=== PATIENT | female | born 2000 | race Two or more races ===

== ENCOUNTER 2022-01-22 23:19 | Emergency (ER) | payer OTHER, SELFPAY ==
[2022-01-22 23:51] VITALS: BP 122/79; PULSE 108; RESP 16; TEMP 36.7; O2SAT 100; BMI 23.8
--- NOTE | 2022-01-23 01:29 | ED.GENADULT ---
HPI - General Adult General Chief complaint: General Medical Stated complaint: throat pain, previously had strep Time Seen by Provider: 01/22/22 23:51 Source: patient Mode of arrival: ambulatory Limitations: no limitations History of Present Illness HPI narrative: Patient comes to the emergency room accompanied by her mother. Patient complaining of sore throat starting today. Three weeks ago, patient tested positive for COVID-19, on January 06, patient was diagnosed with strep, she to antibiotic for 10 days. Patient states that initially she started feeling better but now she is starting to have sore throat again. Patient denies fever or chills, no difficulty swallowing, only pain Related Data Previous Rx's Medication Instructions Recorded amoxicillin 500 mg-potassium 1 tab PO BID 10 days #20 tabs 01/23/22 clavulanate 125 mg tablet (Augmentin) Allergies Allergy/AdvReac Type Severity Reaction Status Date / Time No Known Allergies Allergy Verified 01/22/22 23:51 [No Known Allergies*] Review of Systems Review of Systems: Constitutional : No Weight loss, No Fever, No Chills, No Night Sweats, No Fatigue, No Malaise ENT/Mouth : No Hearing loss, No Ear Pain, No Nasal Congestion, No Sinus Pain, No Hoarseness, complaining of sore throat, No Rhinorrhea, No Swallowing Difficulty Eyes: No Eye Pain, No Swelling, No Redness, No Foreign Body, No Discharge, No Vision Changes Cardiovascular : No Chest Pain, No SOB, No Dyspnea on Exertion, No Orthopnea, No Edema, No Palpitations Respiratory : No Cough, No Sputum, No Wheezing, No Smoke Exposure, No Dyspnea Gastrointestinal : No Nausea, No Vomiting, No Diarrhea, No Constipation, No abdominal Pain, No Hematochezia, No Melena Genitourinary : no irregular bleeding, No Dysuria, No Urinary Frequency, No Hematuria, No Urinary Incontinence, No Urgency, No Flank Pain, No Urinary Flow Changes, No Hesitancy Musculoskeletal : No joint pain, No Myalgias, No Joint Swelling Skin : No Skin Lesions, No rash Neuro : No Weakness, No Numbness, No Paresthesias, No Loss of Consciousness, No Dizziness, No Headache Psych : No Anxiety/Panic, No Depression, No SI/HI/AH/VH, No Social Issues, Heme/Lymph: No Bruising, No Bleeding,No Lymphadenopathy Endocrine : No Polyuria, No Polydipsia, No Temperature Intolerance [facility] Social History Social History Advance Directives: No Advance Directives Information Provided: No Physical Exam ED Vital Signs: Vital Signs - 24 hr 01/22/22 23:51 Temperature 98.1 F Pulse Rate 108 H Respiratory Rate 16 Blood Pressure 122/79 Pulse Oximetry 100 Oxygen Delivery Method Room Air BMI result Body Mass Index 23.8 Const Other: Appearance: Alert. Oriented X3. No acute distress. Eyes: Pupils equal, round and reactive to light. ENT: Erythematous oropharynx, no abscess visualized Neck: Normal inspection. Neck supple. No lymph nodes noted. No crepitus CVS: Normal heart rate and rhythm. Pulses normal. Normal S1 and S2 Respiratory: No respiratory distress. Breath sounds normal. No Wheezing. No rales Abdomen: Soft and nontender. No rigidity. No distention. Skin: Skin warm and dry. Normal skin color. Normal skin turgor. Extremities: No lower extremity edema. No Lacerations. No Rash Neuro: Oriented X 3. No motor deficit. No sensory deficit. Moving all extremities. No slurred speech. CN 2 through 12 grossly intact Psych: calm, cooperative, normal affect Course Course Course Narrative: Rapid strep and COVID test pending. 02:26, rapid test was positive for strep. Patient initially received penicillin. This timing, patient will be getting Augmentin. For symptomatic relief, patient is receiving now p.o. Decadron and viscous lidocaine. Medical Decision Making Lab Data Labs: Lab Results 01/23/22 01/23/22 Range/Units 01:40 01:40 COVID-19 ([facility]) Negative (Negative) COVID-19 Clin Com See Note S. pyogenes GrpA [place]IE Positive A (Negative) Discharge Plan Discharge Clinical Impression: Acute streptococcal pharyngitis Patient Disposition: Home, Self-Care Instructions: Strep Throat (ED) Additional Instructions: Please follow-up with your primary care physician tomorrow. If you have any worsening or new symptoms, please return to the emergency room or call 911 Prescriptions: New amoxicillin-pot clavulanate [Augmentin] 500-125 mg tablet 1 tab PO BID 10 Days Qty: 20 0RF
[2022-01-23 01:53] LABS: Strep A Nucleic Acid Positive (Negative)
[2022-01-23 02:06] LABS: COVID-19 Test Negative (Negative); IDNOW Serial# 16C4AD1C
[2022-01-23 02:15] VITALS: BP 122/68; PULSE 72; RESP 16; O2SAT 98
[2022-01-23] MEDS: Lidocaine HCl Viscous 2 % 15 ML SOLUTION MUCOUS MEM (02:38)
[2022-01-23] MEDS: Amoxicillin/Potassium Clav 875 MG TABLET PO (02:39)
[2022-01-23] MEDS: dexAMETHasone sod phosphate 4 MG/ML VIAL 6 MG IVPUSH (02:39)
== END 2022-01-23 02:47 | disposition home or self-care (01) ==
PROVIDERS: Emergency Provider Emergency Medicine; PCP Pediatrics
DX: J02.0 Streptococcal pharyngitis (principal); Z20.822 Contact with and (suspected) exposure to COVID-19; Z79.899 Other long term (current) drug therapy
CPT/HCPCS: 36415; 87635; 87651; 99283; J1100

== ENCOUNTER 2022-09-13 19:29 | Emergency (ER) | payer OTHER, SELFPAY ==
--- NOTE | ~2022-09-13 | CT_ITS ---
EXAMINATION: CT ABDOMEN AND PELVIS WITHOUT CONTRAST CLINICAL INFORMATION: Lower abdominal discomfort. COMPARISON: None available. TECHNIQUE: Multidetector volumetric imaging was performed from the superior aspect of the liver through the pubic symphysis. Sagittal and coronal reformatted images were obtained on the technologist's workstation. This CT examination was performed using dose optimization techniques as appropriate, variously including the following: *Automated exposure control *Adjustment of mA and/or kV according to patient size (this includes techniques or standardized protocols for targeted exams where dose is matched to indication/reason for exam; i.e. extremities or head) *Use of iterative reconstruction technique DLP: 555 mGy-cm FINDINGS: LUNG BASES: The visualized lung bases are unremarkable. LIVER, GALLBLADDER, AND BILIARY TREE: The liver is normal in size, shape, and attenuation. No focal hepatic lesion or biliary ductal dilatation is present. The gallbladder is unremarkable with no evidence of radiopaque gallstones, gallbladder wall thickening, or obvious pericholecystic inflammatory changes. PANCREAS: Unremarkable. SPLEEN: Unremarkable. ADRENAL GLANDS: Unremarkable. KIDNEYS AND URETERS: The kidneys are normal in size, shape, and attenuation. No hydronephrosis, hydroureter, or calculi seen. No perinephric stranding. BLADDER: Unremarkable. GASTROINTESTINAL TRACT: The stomach is unremarkable. Normal caliber small bowel. No obstruction. No colonic wall thickening or inflammation. Much of the left hemicolon is decompressed. Normal appendix. ABDOMINAL WALL: No significant hernia is appreciated. LYMPH NODES: Normal. VASCULAR: Unremarkable. PELVIC VISCERA: The uterus and adnexa are unremarkable. Small volume of pelvic free fluid. OSSEOUS STRUCTURES: Unremarkable. CT/CT abdomen pelvis wo IV con IMPRESSION: 1. No acute findings in the abdomen or pelvis. No inflammatory changes. 2. Small volume of pelvic free fluid is likely physiologic. Fleischner guidelines were followed.
[2022-09-13 19:41] VITALS: BP 138/69; PULSE 94; RESP 18; TEMP 37.1; O2SAT 99; BMI 27.4
--- NOTE | 2022-09-13 19:41 | ED.GENADULT ---
HPI - General Adult General Chief complaint: Urogenital-Female <SUYAPA Youngblood - Last Filed: 09/13/22 19:43> Stated complaint: Lower abdominal pain <SUYAPA Youngblood - Last Filed: 09/13/22 19:43> Time Seen by Provider: 09/13/22 22:14 <SUYAPA Youngblood - Last Filed: 09/13/22 19:43> Source: patient <Ilda Altamirano MD - Last Filed: 09/13/22 22:33> Mode of arrival: ambulatory <Ilda Altamirano MD - Last Filed: 09/13/22 22:33> Limitations: no limitations <Ilda Altamirano MD - Last Filed: 09/13/22 22:33> History of Present Illness HPI narrative: Patient comes emergency room complaining of suprapubic pain and burning sensation with urination, frequency. Patient states that all of her symptoms started approximately 4 days ago. Two days ago she went to see her primary care physician, prescribed Bactrim for UTI. Patient states that her symptoms are not getting any better. Patient denies flank pain, no fever chills, nausea vomiting or diarrhea. <Ilda Altamirano MD - Last Filed: 09/13/22 22:33> Related Data Home medications: Previous Rx's Medication Instructions Recorded amoxicillin 500 mg-potassium 1 tab PO BID 10 days #20 tabs 01/23/22 clavulanate 125 mg tablet (Augmentin) levofloxacin 500 mg tablet 500 mg PO DAILY #7 tabs 09/13/22 <SUYAPA Youngblood - Last Filed: 09/13/22 19:43> Allergies/adverse reactions: Allergies Allergy/AdvReac Type Severity Reaction Status Date / Time No Known Allergies Allergy Verified 01/22/22 23:51 [No Known Allergies*] <SUYAPA Youngblood - Last Filed: 09/13/22 19:43> Review of Systems Review of Systems: Constitutional : No Weight loss, No Fever, No Chills, No Night Sweats, No Fatigue, No Malaise ENT/Mouth : No Hearing loss, No Ear Pain, No Nasal Congestion, No Sinus Pain, No Hoarseness, No sore throat, No Rhinorrhea, No Swallowing Difficulty Eyes: No Eye Pain, No Swelling, No Redness, No Foreign Body, No Discharge, No Vision Changes Cardiovascular : No Chest Pain, No SOB, No Dyspnea on Exertion, No Orthopnea, No Edema, No Palpitations Respiratory : No Cough, No Sputum, No Wheezing, No Smoke Exposure, No Dyspnea Gastrointestinal : No Nausea, No Vomiting, No Diarrhea, No Constipation, No abdominal Pain, No Hematochezia, No Melena Genitourinary : Complaining of intermittent vaginal spotting secondary to incorrect use of control pills, complaining of dysuria, no hematuria, frequency and suprapubic pain, no flank pain Musculoskeletal : No joint pain, No Myalgias, No Joint Swelling Skin : No Skin Lesions, No rash Neuro : No Weakness, No Numbness, No Paresthesias, No Loss of Consciousness, No Dizziness, No Headache Psych : No Anxiety/Panic, No Depression, No SI/HI/AH/VH, No Social Issues, Heme/Lymph: No Bruising, No Bleeding,No Lymphadenopathy Endocrine : No Polyuria, No Polydipsia, No Temperature Intolerance <Ilda Altamirano MD - Last Filed: 09/13/22 22:33> [facility] Social History Social History: Social History Advance Directives: No Advance Directives Information Provided: No <SUYAPA Youngblood - Last Filed: 09/13/22 19:43> Physical Exam ED Vital Signs: Vital Signs - 24 hr 09/13/22 19:41 Temperature 98.7 F Pulse Rate 94 Respiratory Rate 18 Blood Pressure 138/69 Pulse Oximetry 99 Oxygen Delivery Method Room Air BMI result Body Mass Index 27.4 <SUYAPA Youngblood - Last Filed: 09/13/22 19:43> Vital Signs - 24 hr 09/13/22 19:41 Temperature 98.7 F Pulse Rate 94 Respiratory Rate 18 Blood Pressure 138/69 Pulse Oximetry 99 Oxygen Delivery Method Room Air BMI result Body Mass Index 27.4 <Ilda Altamirano MD - Last Filed: 09/13/22 22:33> Vital Signs - 24 hr 09/13/22 19:41 Temperature 98.7 F Pulse Rate 94 Respiratory Rate 18 Blood Pressure 138/69 Pulse Oximetry 99 Oxygen Delivery Method Room Air BMI result Body Mass Index 27.4 <SUYAPA Hawley - Last Filed: 09/18/22 10:03> Const Other: Appearance: Alert. Oriented X3. No acute distress. Eyes: Pupils equal, round and reactive to light. ENT: Pharynx normal. Neck: Normal inspection. Neck supple. No lymph nodes noted. No crepitus CVS: Normal heart rate and rhythm. Pulses normal. Normal S1 and S2 Respiratory: No respiratory distress. Breath sounds normal. No Wheezing. No rales Abdomen: Soft , mild suprapubic tenderness to palpation, no rigidity, no distention or guarding Skin: Skin warm and dry. Normal skin color. Normal skin turgor. Extremities: No lower extremity edema. No Lacerations. No Rash Neuro: Oriented X 3. No motor deficit. No sensory deficit. Moving all extremities. No slurred speech. CN 2 through 12 grossly intact Psych: calm, cooperative, normal affect <Ilda Altamirano MD - Last Filed: 09/13/22 22:33> Course Course Course Narrative: This is an RME: Additional HPI, ROS, PE not included below will be deferred to primary provider. 21-year-old female presents with lower abdominal discomfort, dysuria, urinary frequency, urgency, prescribed Bactrim yesterday however tells me it is not helping. Tells me she was told she had a UTI, it appears to be getting worse per patient. Denies fevers, chills, chest pain, shortness of breath, headache, vision changes, dizziness and weakness. Lower abdominal tenderness to palpation. Plan at this time <SUYAPA Youngblood - Last Filed: 09/13/22 19:43> This is an RME: Additional HPI, ROS, PE not included below will be deferred to primary provider. 21-year-old female presents with lower abdominal discomfort, dysuria, urinary frequency, urgency, prescribed Bactrim yesterday however tells me it is not helping. Tells me she was told she had a UTI, it appears to be getting worse per patient. Denies fevers, chills, chest pain, shortness of breath, headache, vision changes, dizziness and weakness. Lower abdominal tenderness to palpation. Plan at this time Urine culture came back showing resistance to Levaquin, and susceptibility to Macrobid I spoke to the patient and she said her back hurts a little and I advised return to the ER for an evaluation as I could not evaluate over the phone, and I also called in Macrobid to her pharmacy in [place] <SUYAPA Hawley - Last Filed: 09/18/22 10:03> Medications Administered Discontinued Medications Generic Name Dose Route Start Last Admin Trade Name Freq PRN Reason Stop Dose Admin Ketorolac Tromethamine 60 mg 09/13/22 22:30 09/13/22 22:39 Ketorolac Tromethamine 60 Mg/2 Ml Vial IM 09/13/22 22:31 60 mg ONCE ONE Administration Levofloxacin 500 mg 09/13/22 22:29 09/13/22 22:38 Levofloxacin 500 Mg Tablet PO 09/13/22 22:30 500 mg ONCE ONE Administration Phenazopyridine HCl 100 mg 09/13/22 22:29 09/13/22 22:38 Phenazopyridine Hcl 100 Mg Tablet PO 09/13/22 22:30 100 mg ONCE ONE Administration <SUYAPA Youngblood - Last Filed: 09/13/22 19:43> Medications Administered Discontinued Medications Generic Name Dose Route Start Last Admin Trade Name Freq PRN Reason Stop Dose Admin Ketorolac Tromethamine 60 mg 09/13/22 22:30 09/13/22 22:39 Ketorolac Tromethamine 60 Mg/2 Ml Vial IM 09/13/22 22:31 60 mg ONCE ONE Administration Levofloxacin 500 mg 09/13/22 22:29 09/13/22 22:38 Levofloxacin 500 Mg Tablet PO 09/13/22 22:30 500 mg ONCE ONE Administration Phenazopyridine HCl 100 mg 09/13/22 22:29 09/13/22 22:38 Phenazopyridine Hcl 100 Mg Tablet PO 09/13/22 22:30 100 mg ONCE ONE Administration <Ilda Altamirano MD - Last Filed: 09/13/22 22:33> Medications Administered Discontinued Medications Generic Name Dose Route Start Last Admin Trade Name Freq PRN Reason Stop Dose Admin Ketorolac Tromethamine 60 mg 09/13/22 22:30 09/13/22 22:39 Ketorolac Tromethamine 60 Mg/2 Ml Vial IM 09/13/22 22:31 60 mg ONCE ONE Administration Levofloxacin 500 mg 09/13/22 22:29 09/13/22 22:38 Levofloxacin 500 Mg Tablet PO 09/13/22 22:30 500 mg ONCE ONE Administration Phenazopyridine HCl 100 mg 04/18/23 22:29 09/13/22 22:38 Phenazopyridine Hcl 100 Mg Tablet PO 09/13/22 22:30 100 mg ONCE ONE Administration <SUYAPA Hawley - Last Filed: 09/18/22 10:03> Medical Decision Making Medical Decision Making MDM Narrative: - test negative -urinalysis positive for UTI. White blood cell count slightly elevated 11.3, normal blood pressure, no fever. Sepsis not suspected. -I discussed with the patient the possible that she may be resistant to Bactrim. Patient's antibiotics were switched to Levaquin, 1st dose given p.o. in the emergency room. Also given 1 dose of phenazopyridine and 1 dose of IM ketorolac. <Ilda Altamirano MD - Last Filed: 09/13/22 22:33> Differential Diagnosis Differential Diagnoses: The differential diagnosis associated with the presentation includes (UTI, cystitis, pyelonephritis) <Ilda Altamirano MD - Last Filed: 09/13/22 22:33> Lab Data Result Diagrams: 09/13/22 20:06 09/13/22 20:06 <SUYAPA Youngblood - Last Filed: 09/13/22 19:43> Labs: Lab Results 09/13/22 09/13/22 09/13/22 Range/Units 20:06 20:06 20:06 WBC 11.3 H (4.8-10.8) X10*3/uL RBC 4.73 (4.20-5.50) X10*6/uL Hgb 13.7 (12.0-16.0) g/dl Hct 41.4 (37.0-47.0) % MCV 87.5 (80.0-98.0) fL MCH 29.0 (27.0-33.0) pg MCHC 33.1 (31.0-35.0) g/dl RDW 12.8 (11.0-16.0) % Plt Count 346 (160-400) X10*3/uL MPV 9.5 (9.4-12.3) fL Immature Gran % (Auto) 0.3 (0.0-0.4) % Neut % (Auto) 68.6 (45-73) % Lymph % (Auto) 21.5 (20-40) % [place] % (Auto) 8.1 (2-11) % Eos % (Auto) 1.1 (0-4) % Baso % (Auto) 0.4 (0-2) % Lymph # (Auto) 2.4 (1.2-4.9) X10*3/uL [place] # (Auto) 0.9 (0.1-1.2) X10*3/uL Eos # (Auto) 0.1 (0.0-0.4) X10*3/uL Baso # (Auto) 0.0 (0.0-0.2) X10*3/uL Abs Immat Gran (auto) 0.03 (0.00-0.03) X10*3/uL Absolute Neuts (auto) 7.8 (2.0-8.3) x10*3/uL Absolute Nucleated RBC 0.000 (0.0-0.012) X10*3/uL Nucleated RBC % (auto) 0.0 (0.0-0.2) /100WBC Sodium 138 (135-145) mmol/L Potassium 4.0 (3.3-5.1) mmol/L Chloride 105 (96-108) mmol/L Carbon Dioxide 24 (22-29) mmol/L Anion Gap 13 (12-20) BUN 9 (9-16) mg/dL Creatinine 0.75 (0.5-1.4) mg/dL Estim Creat Clear Calc 122.1 Estimated GFR > 60 Random Glucose 86 (60-115) mg/dL Calcium 9.7 (8.4-10.2) mg/dL Magnesium 2.3 (1.6-2.6) mg/dL Total Bilirubin 0.6 (0.0-1.0) mg/dL AST 17 (5-31) U/L ALT 21 (0-31) U/L Alkaline Phosphatase 92 (39-117) U/L Total Protein 7.7 (6.5-8.0) g/dL Albumin 4.5 (3.5-5.0) g/dL Beta HCG, Quant < 2 mIU/mL Urine Color Urine Appearance Urine pH (5.0-9.0) Ur Specific [place] (1.005-1.025) Urine Protein (Neg-Trace) mg/dL Urine Glucose (UA) (Negative) mg/dL Urine Ketones (Negative) mg/dL Urine Blood (Negative) Urine Nitrite (Negative) Ur Leukocyte Esterase (Negative) Urine RBC (0-2) /HPF Urine WBC (0-5) /HPF Ur Squamous Epith Cells (0-2) /HPF Urine Bacteria (None Seen) Hyaline Casts (0-2) /LPF Chlam trachomat DNA PCR (Not Detect.) COVID-19 (CATA) Negative (Negative) COVID-19 Clin Com See Note N.gonorrhoeae DNA (PCR) (Not Detect.) 09/13/22 09/13/22 Range/Units 20:06 20:06 WBC (4.8-10.8) X10*3/uL RBC (4.20-5.50) X10*6/uL Hgb (12.0-16.0) g/dl Hct (37.0-47.0) % MCV (80.0-98.0) fL MCH (27.0-33.0) pg MCHC (31.0-35.0) g/dl RDW (11.0-16.0) % Plt Count (160-400) X10*3/uL MPV (9.4-12.3) fL Immature Gran % (Auto) (0.0-0.4) % Neut % (Auto) (45-73) % Lymph % (Auto) (20-40) % [place] % (Auto) (2-11) % Eos % (Auto) (0-4) % Baso % (Auto) (0-2) % Lymph # (Auto) (1.2-4.9) X10*3/uL [place] # (Auto) (0.1-1.2) X10*3/uL Eos # (Auto) (0.0-0.4) X10*3/uL Baso # (Auto) (0.0-0.2) X10*3/uL Abs Immat Gran (auto) (0.00-0.03) X10*3/uL Absolute Neuts (auto) (2.0-8.3) x10*3/uL Absolute Nucleated RBC (0.0-0.012) X10*3/uL Nucleated RBC % (auto) (0.0-0.2) /100WBC Sodium (135-145) mmol/L Potassium (3.3-5.1) mmol/L Chloride (96-108) mmol/L Carbon Dioxide (22-29) mmol/L Anion Gap (12-20) BUN (9-16) mg/dL Creatinine (0.5-1.4) mg/dL Estim Creat Clear Calc Estimated GFR Random Glucose (60-115) mg/dL Calcium (8.4-10.2) mg/dL Magnesium (1.6-2.6) mg/dL Total Bilirubin (0.0-1.0) mg/dL AST (5-31) U/L ALT (0-31) U/L Alkaline Phosphatase (39-117) U/L Total Protein (6.5-8.0) g/dL Albumin (3.5-5.0) g/dL Beta HCG, Quant mIU/mL Urine Color Yellow Urine Appearance Clear Urine pH 7.0 (5.0-9.0) Ur Specific [place] <= 1.005 (1.005-1.025) Urine Protein Negative (Neg-Trace) mg/dL Urine Glucose (UA) Negative (Negative) mg/dL Urine Ketones Negative (Negative) mg/dL Urine Blood Trace H (Negative) Urine Nitrite Negative (Negative) Ur Leukocyte Esterase Moderate (2+) H (Negative) Urine RBC 0-2 (0-2) /HPF Urine WBC 11-20 H (0-5) /HPF Ur Squamous Epith Cells 0-2 (0-2) /HPF Urine Bacteria None Seen (None Seen) Hyaline Casts 0-2 (0-2) /LPF Chlam trachomat DNA PCR NOT DETECTED (Not Detect.) COVID-19 (CATA) (Negative) COVID-19 Clin Com N.gonorrhoeae DNA (PCR) NOT DETECTED (Not Detect.) <SUYAPA Youngblood - Last Filed: 09/13/22 19:43> Lab Results 09/13/22 09/13/22 09/13/22 Range/Units 20:06 20:06 20:06 WBC 11.3 H (4.8-10.8) X10*3/uL RBC 4.73 (4.20-5.50) X10*6/uL Hgb 13.7 (12.0-16.0) g/dl Hct 41.4 (37.0-47.0) % MCV 87.5 (80.0-98.0) fL MCH 29.0 (27.0-33.0) pg MCHC 33.1 (31.0-35.0) g/dl RDW 12.8 (11.0-16.0) % Plt Count 346 (160-400) X10*3/uL MPV 9.5 (9.4-12.3) fL Immature Gran % (Auto) 0.3 (0.0-0.4) % Neut % (Auto) 68.6 (45-73) % Lymph % (Auto) 21.5 (20-40) % [place] % (Auto) 8.1 (2-11) % Eos % (Auto) 1.1 (0-4) % Baso % (Auto) 0.4 (0-2) % Lymph # (Auto) 2.4 (1.2-4.9) X10*3/uL [place] # (Auto) 0.9 (0.1-1.2) X10*3/uL Eos # (Auto) 0.1 (0.0-0.4) X10*3/uL Baso # (Auto) 0.0 (0.0-0.2) X10*3/uL Abs Immat Gran (auto) 0.03 (0.00-0.03) X10*3/uL Absolute Neuts (auto) 7.8 (2.0-8.3) x10*3/uL Absolute Nucleated RBC 0.000 (0.0-0.012) X10*3/uL Nucleated RBC % (auto) 0.0 (0.0-0.2) /100WBC Sodium 138 (135-145) mmol/L Potassium 4.0 (3.3-5.1) mmol/L Chloride 105 (96-108) mmol/L Carbon Dioxide 24 (22-29) mmol/L Anion Gap 13 (12-20) BUN 9 (9-16) mg/dL Creatinine 0.75 (0.5-1.4) mg/dL Estim Creat Clear Calc 122.1 Estimated GFR > 60 Random Glucose 86 (60-115) mg/dL Calcium 9.7 (8.4-10.2) mg/dL Magnesium 2.3 (1.6-2.6) mg/dL Total Bilirubin 0.6 (0.0-1.0) mg/dL AST 17 (5-31) U/L ALT 21 (0-31) U/L Alkaline Phosphatase 92 (39-117) U/L Total Protein 7.7 (6.5-8.0) g/dL Albumin 4.5 (3.5-5.0) g/dL Beta HCG, Quant < 2 mIU/mL Urine Color Urine Appearance Urine pH (5.0-9.0) Ur Specific [place] (1.005-1.025) Urine Protein (Neg-Trace) mg/dL Urine Glucose (UA) (Negative) mg/dL Urine Ketones (Negative) mg/dL Urine Blood (Negative) Urine Nitrite (Negative) Ur Leukocyte Esterase (Negative) Urine RBC (0-2) /HPF Urine WBC (0-5) /HPF Ur Squamous Epith Cells (0-2) /HPF Urine Bacteria (None Seen) Hyaline Casts (0-2) /LPF Chlam trachomat DNA PCR (Not Detect.) COVID-19 (CATA) Negative (Negative) COVID-19 Clin Com See Note N.gonorrhoeae DNA (PCR) (Not Detect.) 09/13/22 09/13/22 Range/Units 20:06 20:06 WBC (4.8-10.8) X10*3/uL RBC (4.20-5.50) X10*6/uL Hgb (12.0-16.0) g/dl Hct (37.0-47.0) % MCV (80.0-98.0) fL MCH (27.0-33.0) pg MCHC (31.0-35.0) g/dl RDW (11.0-16.0) % Plt Count (160-400) X10*3/uL MPV (9.4-12.3) fL Immature Gran % (Auto) (0.0-0.4) % Neut % (Auto) (45-73) % Lymph % (Auto) (20-40) % [place] % (Auto) (2-11) % Eos % (Auto) (0-4) % Baso % (Auto) (0-2) % Lymph # (Auto) (1.2-4.9) X10*3/uL [place] # (Auto) (0.1-1.2) X10*3/uL Eos # (Auto) (0.0-0.4) X10*3/uL Baso # (Auto) (0.0-0.2) X10*3/uL Abs Immat Gran (auto) (0.00-0.03) X10*3/uL Absolute Neuts (auto) (2.0-8.3) x10*3/uL Absolute Nucleated RBC (0.0-0.012) X10*3/uL Nucleated RBC % (auto) (0.0-0.2) /100WBC Sodium (135-145) mmol/L Potassium (3.3-5.1) mmol/L Chloride (96-108) mmol/L Carbon Dioxide (22-29) mmol/L Anion Gap (12-20) BUN (9-16) mg/dL Creatinine (0.5-1.4) mg/dL Estim Creat Clear Calc Estimated GFR Random Glucose (60-115) mg/dL Calcium (8.4-10.2) mg/dL Magnesium (1.6-2.6) mg/dL Total Bilirubin (0.0-1.0) mg/dL AST (5-31) U/L ALT (0-31) U/L Alkaline Phosphatase (39-117) U/L Total Protein (6.5-8.0) g/dL Albumin (3.5-5.0) g/dL Beta HCG, Quant mIU/mL Urine Color Yellow Urine Appearance Clear Urine pH 7.0 (5.0-9.0) Ur Specific [place] <= 1.005 (1.005-1.025) Urine Protein Negative (Neg-Trace) mg/dL Urine Glucose (UA) Negative (Negative) mg/dL Urine Ketones Negative (Negative) mg/dL Urine Blood Trace H (Negative) Urine Nitrite Negative (Negative) Ur Leukocyte Esterase Moderate (2+) H (Negative) Urine RBC 0-2 (0-2) /HPF Urine WBC 11-20 H (0-5) /HPF Ur Squamous Epith Cells 0-2 (0-2) /HPF Urine Bacteria None Seen (None Seen) Hyaline Casts 0-2 (0-2) /LPF Chlam trachomat DNA PCR NOT DETECTED (Not Detect.) COVID-19 (CATA) (Negative) COVID-19 Clin Com N.gonorrhoeae DNA (PCR) NOT DETECTED (Not Detect.) <Ilda Altamirano MD - Last Filed: 09/13/22 22:33> Lab Results 09/13/22 09/13/22 09/13/22 Range/Units 20:06 20:06 20:06 WBC 11.3 H (4.8-10.8) X10*3/uL RBC 4.73 (4.20-5.50) X10*6/uL Hgb 13.7 (12.0-16.0) g/dl Hct 41.4 (37.0-47.0) % MCV 87.5 (80.0-98.0) fL MCH 29.0 (27.0-33.0) pg MCHC 33.1 (31.0-35.0) g/dl RDW 12.8 (11.0-16.0) % Plt Count 346 (160-400) X10*3/uL MPV 9.5 (9.4-12.3) fL Immature Gran % (Auto) 0.3 (0.0-0.4) % Neut % (Auto) 68.6 (45-73) % Lymph % (Auto) 21.5 (20-40) % [place] % (Auto) 8.1 (2-11) % Eos % (Auto) 1.1 (0-4) % Baso % (Auto) 0.4 (0-2) % Lymph # (Auto) 2.4 (1.2-4.9) X10*3/uL [place] # (Auto) 0.9 (0.1-1.2) X10*3/uL Eos # (Auto) 0.1 (0.0-0.4) X10*3/uL Baso # (Auto) 0.0 (0.0-0.2) X10*3/uL Abs Immat Gran (auto) 0.03 (0.00-0.03) X10*3/uL Absolute Neuts (auto) 7.8 (2.0-8.3) x10*3/uL Absolute Nucleated RBC 0.000 (0.0-0.012) X10*3/uL Nucleated RBC % (auto) 0.0 (0.0-0.2) /100WBC Sodium 138 (135-145) mmol/L Potassium 4.0 (3.3-5.1) mmol/L Chloride 105 (96-108) mmol/L Carbon Dioxide 24 (22-29) mmol/L Anion Gap 13 (12-20) BUN 9 (9-16) mg/dL Creatinine 0.75 (0.5-1.4) mg/dL Estim Creat Clear Calc 122.1 Estimated GFR > 60 Random Glucose 86 (60-115) mg/dL Calcium 9.7 (8.4-10.2) mg/dL Magnesium 2.3 (1.6-2.6) mg/dL Total Bilirubin 0.6 (0.0-1.0) mg/dL AST 17 (5-31) U/L ALT 21 (0-31) U/L Alkaline Phosphatase 92 (39-117) U/L Total Protein 7.7 (6.5-8.0) g/dL Albumin 4.5 (3.5-5.0) g/dL Beta HCG, Quant < 2 mIU/mL Urine Color Urine Appearance Urine pH (5.0-9.0) Ur Specific [place] (1.005-1.025) Urine Protein (Neg-Trace) mg/dL Urine Glucose (UA) (Negative) mg/dL Urine Ketones (Negative) mg/dL Urine Blood (Negative) Urine Nitrite (Negative) Ur Leukocyte Esterase (Negative) Urine RBC (0-2) /HPF Urine WBC (0-5) /HPF Ur Squamous Epith Cells (0-2) /HPF Urine Bacteria (None Seen) Hyaline Casts (0-2) /LPF Chlam trachomat DNA PCR (Not Detect.) COVID-19 (CATA) Negative (Negative) COVID-19 Clin Com See Note N.gonorrhoeae DNA (PCR) (Not Detect.) 09/13/22 09/13/22 Range/Units 20:06 20:06 WBC (4.8-10.8) X10*3/uL RBC (4.20-5.50) X10*6/uL Hgb (12.0-16.0) g/dl Hct (37.0-47.0) % MCV (80.0-98.0) fL MCH (27.0-33.0) pg MCHC (31.0-35.0) g/dl RDW (11.0-16.0) % Plt Count (160-400) X10*3/uL MPV (9.4-12.3) fL Immature Gran % (Auto) (0.0-0.4) % Neut % (Auto) (45-73) % Lymph % (Auto) (20-40) % [place] % (Auto) (2-11) % Eos % (Auto) (0-4) % Baso % (Auto) (0-2) % Lymph # (Auto) (1.2-4.9) X10*3/uL [place] # (Auto) (0.1-1.2) X10*3/uL Eos # (Auto) (0.0-0.4) X10*3/uL Baso # (Auto) (0.0-0.2) X10*3/uL Abs Immat Gran (auto) (0.00-0.03) X10*3/uL Absolute Neuts (auto) (2.0-8.3) x10*3/uL Absolute Nucleated RBC (0.0-0.012) X10*3/uL Nucleated RBC % (auto) (0.0-0.2) /100WBC Sodium (135-145) mmol/L Potassium (3.3-5.1) mmol/L Chloride (96-108) mmol/L Carbon Dioxide (22-29) mmol/L Anion Gap (12-20) BUN (9-16) mg/dL Creatinine (0.5-1.4) mg/dL Estim Creat Clear Calc Estimated GFR Random Glucose (60-115) mg/dL Calcium (8.4-10.2) mg/dL Magnesium (1.6-2.6) mg/dL Total Bilirubin (0.0-1.0) mg/dL AST (5-31) U/L ALT (0-31) U/L Alkaline Phosphatase (39-117) U/L Total Protein (6.5-8.0) g/dL Albumin (3.5-5.0) g/dL Beta HCG, Quant mIU/mL Urine Color Yellow Urine Appearance Clear Urine pH 7.0 (5.0-9.0) Ur Specific [place] <= 1.005 (1.005-1.025) Urine Protein Negative (Neg-Trace) mg/dL Urine Glucose (UA) Negative (Negative) mg/dL Urine Ketones Negative (Negative) mg/dL Urine Blood Trace H (Negative) Urine Nitrite Negative (Negative) Ur Leukocyte Esterase Moderate (2+) H (Negative) Urine RBC 0-2 (0-2) /HPF Urine WBC 11-20 H (0-5) /HPF Ur Squamous Epith Cells 0-2 (0-2) /HPF Urine Bacteria None Seen (None Seen) Hyaline Casts 0-2 (0-2) /LPF Chlam trachomat DNA PCR NOT DETECTED (Not Detect.) COVID-19 (CATA) (Negative) COVID-19 Clin Com N.gonorrhoeae DNA (PCR) NOT DETECTED (Not Detect.) <SUYAPA Hawley - Last Filed: 09/18/22 10:03> Discharge Plan Discharge Clinical Impression: Urinary tract infection <SUYAPA Youngblood - Last Filed: 09/13/22 19:43> Patient Disposition: Home, Self-Care <SUYAPA Youngblood Last Filed: 09/13/22 19:43> Instructions: Urinary Tract Infection in Women (ED) <SUYAPA Youngblood - Last Filed: 09/13/22 19:43> Additional Instructions: Please follow-up with your primary care physician tomorrow. If you have any worsening or new symptoms, please return to the emergency room or call 911 <SUYAPA Youngblood - Last Filed: 09/13/22 19:43> Prescriptions: New levofloxacin 500 mg tablet 500 mg PO DAILY Qty: 7 0RF No Action amoxicillin-pot clavulanate [Augmentin] 500-125 mg tablet 1 tab PO BID 10 Days Qty: 20 0RF <SUYAPA Youngblood Last Filed: 09/13/22 19:43> Interventions: ED Discharge Assessment Last Done: 09/13/22 22:43 <SUYAPA Youngblood Last Filed: 09/13/22 19:43> Discharge Date/Time: 09/13/22 22:45 <SUYAPA Youngblood - Last Filed: 09/13/22 19:43>
[2022-09-13 20:33] LABS: MANUAL DIFF FLAG NO
[2022-09-13 20:34] LABS: Basophils Percent Auto 0.4 % (0-2); Eosinophils Absolute Auto 0.1 X10*3/uL (0.0-0.4); Eosinophils Percent Auto 1.1 % (0-4); Hematocrit 41.4 % (37.0-47.0); Hemoglobin 13.7 g/dl (12.0-16.0); Imm Gran Abs Auto 0.03 X10*3/uL (0.00-0.03); Imm Gran Pct Auto 0.3 % (0.0-0.4); Lymphocytes Absolute Auto 2.4 X10*3/uL (1.2-4.9); Lymphocytes Percent Auto 21.5 % (20-40); Mean Corpuscular HGB Conc 33.1 g/dl (31.0-35.0); Mean Corpuscular Volume 87.5 fL (80.0-98.0); Mean Platelet Volume 9.5 fL (9.4-12.3); Monocytes Absolute Auto 0.9 X10*3/uL (0.1-1.2); Monocytes Percent Auto 8.1 % (2-11); Neutrophils Absolute Auto 7.8 x10*3/uL (2.0-8.3); Neutrophils Percent Auto 68.6 % (45-73); Platelet Count 346 X10*3/uL (160-400); Red Blood Count 4.73 X10*6/uL (4.20-5.50); Red Cell Distribution Width 12.8 % (11.0-16.0); White Blood Count 11.3 X10*3/uL (4.8-10.8)
[2022-09-13 20:35] LABS: Appearance Urine Clear; Color Urine Yellow; Glucose Urine UA Negative (Negative); Leukocyte Esterase Urine Moderate (2+) (Negative); Nitrite Urine Negative (Negative); Specific Gravity - Urine <= 1.005 (1.005-1.025); UMIC TRIGGER UACC YES; Urine Blood Trace (Negative); Urine Ketones Negative (Negative); Urine Protein Negative (Neg-Trace)
[2022-09-13 20:43] LABS: Bacteria Urine None Seen (None Seen); Hyaline Casts Urine 0-2 /LPF (0-2); RBC Urine 0-2 /HPF (0-2); Squamous Epithelial Cell Urine 0-2 /HPF (0-2); UACC Culture Trigger YES
[2022-09-13 20:50] LABS: COVID-19 Test Negative (Negative); IDNOW Serial# 08D9AD1C
[2022-09-13 21:02] LABS: Alanine Aminotransferase 21 U/L (0-31); Albumin Level 4.5 g/dL (3.5-5.0); Alkaline Phosphatase 92 U/L (39-117); Anion Gap 13 (12-20); Aspartate Amino Transferase 17 U/L (5-31); Bilirubin Total 0.6 mg/dL (0.0-1.0); Blood Urea Nitrogen 9 mg/dL (9-16); Calcium 9.7 mg/dL (8.4-10.2); Carbon Dioxide 24 mmol/L (22-29); Chloride 105 mmol/L (96-108); Creatinine Clr Calc Pharmacy 122.1; Estimated Glomerular Filt Rate > 60; Glucose Random 86 mg/dL (60-115); Magnesium 2.3 mg/dL (1.6-2.6); Sodium 138 mmol/L (135-145); Total Protein 7.7 g/dL (6.5-8.0)
[2022-09-13 21:06] LABS: HCG Quantitative < 2 mIU/mL
[2022-09-13] MEDS: Phenazopyridine HCL 100 MG TABLET PO (22:38)
[2022-09-13] MEDS: levoFLOXacin 500 MG TABLET PO (22:38)
[2022-09-13] MEDS: Ketorolac Tromethamine 60 MG/2 ML VIAL IM (22:39)
--- NOTE | 2022-09-13 22:42 | PC.NURSE ---
medicated per provider order, reporting 8/10 pelvic pain.
[2022-09-14 09:43] LABS: CT PCR NOT DETECTED (Not Detect.); NG PCR NOT DETECTED (Not Detect.)
== END 2022-09-13 22:45 | disposition home or self-care (01) ==
PROVIDERS: Physician Assistant; Emergency Provider Emergency Medicine; PCP Pediatrics
DX: N39.0 Urinary tract infection, site not specified (principal); B96.20 Unspecified Escherichia coli [E. coli] as the cause of diseases classified elsewhere; Z20.822 Contact with and (suspected) exposure to COVID-19; R10.30 Lower abdominal pain, unspecified
CPT/HCPCS: 0353U; 74176; 80053; 81001; 83735; 84702; 85025; 87086; 87088; 87186; 87635; 96372; 99283; 99284; J1885

== ENCOUNTER 2023-02-14 13:00 | Outpatient (AMB) | payer OTHER, SELFPAY ==
--- NOTE | 2023-02-14 13:43 | A.OFFVIS_ITS ---
Intake Vital Signs 02/14/23 13:44 Height 5 ft 5 in Weight 168 lb BMI 28.0 BP 126/70 Intake Visit Reasons: Consult Intake Note: 3 HCG test at home all positive Shop Coordinator Required: No Allergies No Known Allergies [No Known Allergies*] Allergy (Verified 02/14/23 13:47) Medication List - Last Reconciled 02/14/23 by Radha Rasmussen CNM No Known Home Meds Is last menstrual period known: Yes Last menstrual period: 01/11/23 Post menopausal: No HPI Consult HPI Details Patient is here for test consult visit her last menstrual period is stated as 01/11/2023 which makes her 4 weeks and 6 days today the test today here is positive.. She says this is her 2nd she had an when she was 18 per 17 goes her boyfriend at the time was crazy and she could not continue the at that time [facility] she said it was kind of traumatizing so she really wants to know how far along she is because she kind a needs to think about it before she makes her decision about what to do, in terms of continuing the or terminating. She is involved with her partner. She has told a couple of friends about the home tests. She had an last menstrual period 01/11/2023 but she said it was fisher eel spear and shorter maybe only about 3 days a normally it lasts 4-5 days her previous period to that was 12/17/2022. She was on control pills but she often would miss pills. She got her control pills at [facility] where [facility] told her they could not do an ultrasound for her unless she had already made up her mind that she was going to be having an . She really wants to know how far along she is her breasts have been a little bit tender especially in the mornings but she has had no nausea but she felt a little bit bloated on Monday and she saw a tick talk video of a girl that felt bloated and she did a test and it was positive for that inspired her to do a test. Nate and srini it was positive [facility] Female Reproductive History Menstrual Age of Menarche: 14 Duration of menses: 3-5 days Date of last menstrual period: 01/11/23 control method: none Total pregnancies: 2 Ab induced: 1 Physical Exam Vital Signs: Last Vital Signs BP 126/70 02/14/23 13:44 BMI result Body Mass Index 28.0 Results AMB Test Urine AMB Test Urine Positive Last Edit by KASSANDRA Thurston on 02/14/23 13:51 Results Reviewed Results Reviewed: Laboratory Last Values [facility] Positive 02/14/23 13:50 Assessment & Plan Assessment & Plan (1) Positive urine test: Comment: LMP 01/11/2023 but was light and short, was on OCPs with skipped pills. P LMP 12/17/2022, planning ultrasound for dating. Code(s): Z32.01 - Encounter for test, result positive Plan Reviewed her LMP and her previous menstrual period and her inconsistent use of OCPs. Plan made to get an ultrasound for dating though in all likelihood she is about between 4-5 weeks by her symptoms. Discussed that we can provide care here but if she chose to have an she would be best served by [facility] as soon as she knows what she wants to do. Discussed that Medical terminations with pills is much less traumatic. Also discussed that if she did want to come here for care we could provide that option however for 1st it would be anticipated that she would have lots and lots of questions and it might be good for her to meet the team that would be involved in her and since that would not be os she might be better served by receiving care through our comprehensive practice either at [facility] or [facility]. She said that she was checking out [facility] midwifery already and they told her they could get her an appointment for 2 weeks so that is why she came here. I told her that that would be a fine choice as well. I offered to send her prescription for vitamins and we will have a tele visit or of an in-person visit what ever is better after the ultrasound though if she makes a decision and decides to go for an I asked her to please cancel the appointment here. Orders: Orders US OB <= 14 weeks fetus Today Z32.01 - Encounter for test, result positive Radha Rasmussen CNM AMB HCG Urine Test Today Z32.02 - Encounter for test, result negative Maria A Gomez CNM Medications: New PNV,calcium 51-cahb-[id number] acid 27 mg iron- 1 mg ( Vitamins Plus Low Iron) 1 tab PO DAILY 90 tabs 1RF Radha Rasmussen CNM Coding Level of Care Code New Pt Level 3 (04570) Diagnoses Positive urine test Z32.01
[2023-02-14 13:44] VITALS: BP 126/70; BMI 28.0
== END 2023-02-14 14:37 | disposition home or self-care (01) ==
PROVIDERS: PCP Pediatrics; Visit Provider Advanced Practice Midwife
DX: Z32.01 Encounter for pregnancy test, result positive (principal); Z32.02 Encounter for pregnancy test, result negative
CPT/HCPCS: 99203

== ENCOUNTER → 2023-02-14 13:00 | Outpatient (BNVA) | payer OTHER, SELFPAY | PROVIDERS: PCP Pediatrics; Visit Provider Advanced Practice Midwife | DX: Z32.01 Encounter for pregnancy test, result positive (principal); Z91.199 Patient's noncompliance with other medical treatment and regimen due to unspecified reason | CPT/HCPCS: 81025 ==

== ENCOUNTER 2023-02-17 15:28 | Outpatient (REF) | payer OTHER, SELFPAY ==
--- NOTE | ~2023-02-17 | US_ITS ---
EXAMINATION: US OBSTETRICAL ULTRASOUND CLINICAL INFORMATION: Positive test. Check size and dates. COMPARISON: None available. LMP: 01/11/2023. Gestational age by maternal dates is 10/18/2023. Estimated date of delivery by maternal dates is 5 weeks 2 days. TECHNIQUE: Transabdominal and transvaginal first trimester OB ultrasound. Transvaginal exam was performed for better visualization of the gestational sac and ovaries. FINDINGS: The uterus is anteverted and measures 9.9 x 3.7 x 4.9 cm in dimension. There is an intrauterine gestational sac and yolk sac. No pole is seen. Mean sac diameter measures 0.95 cm suggesting gestational age 5 weeks 4 days. The right maternal ovary measures 3.7 x 2.4 x 3 cm and contains a 2.7 x 2.4 x 2.8 cm cyst. The left maternal ovary is normal and measures 3.2 x 1.3 x 2.4 cm. There is no fluid in the pelvis. US/US OB pelvic and transvaginal IMPRESSION: Intrauterine gestational sac and yolk sac. Mean sac diameter suggests gestational age of 5 weeks 4 days. No pole seen, probably secondary to early gestational age.
== END 2023-02-17 15:29 | disposition home or self-care (01) ==
LOC: HO.HMGCX 15:28
PROVIDERS: PCP Pediatrics; Visit Provider Advanced Practice Midwife
DX: Z34.90 Encounter for supervision of normal pregnancy, unspecified, unspecified trimester (principal)
CPT/HCPCS: 76801; 76817

== ENCOUNTER 2023-03-01 11:25 | Outpatient (AMB) | payer OTHER, SELFPAY ==
--- NOTE | 2023-03-01 11:06 | MHC.OFFVIS ---
Intake Intake Visit Reasons: TV Ultrasound Results Patient Transportation Driver Required: No Allergies No Known Allergies [No Known Allergies*] Allergy (Verified 03/01/23 11:09) Post menopausal: No Patient : No Do you need a note to return to daycare/school/sports/work: No HPI TV Ultrasound Results HPI Details This is a tele visit to discuss patient's ultrasound results that was done for dating of a . The ultrasound was done on 02/17 23 and it gave of gestational age at that visit of 5 weeks and 4 days which corresponds with her LMP and her own use of her flow magno. that would make her 7 weeks and 1 or 2 days today. she is feeling well and she has decided to continue the . She has thrown up a couple of times but says it is not bad and she does not want anything for nausea she sometimes is bloated and is constipated but she has some prune juice in the house because her grandpa uses it and it works for good for him so she will use that. She has already called [facility] midwifery as I gave her the list of options at the last visit and she has an appointment at the beginning of March for her intake there. 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 Though she does live in [place]. She does not have any other questions and I reviewed what she should do if in she has an emergency which would be to go to [facility] evaluation unit. She will get her care at [facility]. She already has the vitamins that I sent to the pharmacy for her at the 1st visit. [facility] Social History Patient : No Female Reproductive History Menstrual Age of Menarche: 14 Results Reviewed Results Reviewed: [facility] [address] [place] [address] Ultrasound Report Signed Patient: Darleen Valdez MR#: [id number] : 2000 Acct:[id number] Age/Sex: 22 / F ADM Date: 02/17/23 Loc: HO.HMGCX Attending Dr: Radha Rasmussen CNM Ordering Physician: Radha Rasmussen CNM Date of Service: 02/17/23 Procedure(s): US OB pelvic and transvaginal Accession Number(s): [id number] cc: Meche Jordan MD; Radha Rasmussen~ EXAMINATION: US OBSTETRICAL ULTRASOUND CLINICAL INFORMATION: Positive test. Check size and dates. COMPARISON: None available. LMP: 01/11/2023. Gestational age by maternal dates is 10/18/2023. Estimated date of delivery by maternal dates is 5 weeks 2 days. TECHNIQUE: Transabdominal and transvaginal first trimester OB ultrasound. Transvaginal exam was performed for better visualization of the gestational sac and ovaries. FINDINGS: The uterus is anteverted and measures 9.9 x 3.7 x 4.9 cm in dimension. There is an intrauterine gestational sac and yolk sac. No pole is seen. Mean sac diameter measures 0.95 cm suggesting gestational age 5 weeks 4 days. The right maternal ovary measures 3.7 x 2.4 x 3 cm and contains a 2.7 x 2.4 x 2.8 cm cyst. The left maternal ovary is normal and measures 3.2 x 1.3 x 2.4 cm. There is no fluid in the pelvis. US/US OB pelvic and transvaginal IMPRESSION: Intrauterine gestational sac and yolk sac. Mean sac diameter suggests gestational age of 5 weeks 4 days. No pole seen, probably secondary to early gestational age. Dictated By: Rachel Bai MD Signed By: <Electronically signed by Rachel Bai MD in OV> 02/24/23 1026 DD/ 1553 TD/TT: [employer] Estate [employer] Administrator: KAMLESH Assessment & Plan Assessment & Plan (1) Positive urine test: Comment: LMP 01/11/2023 but was light and short, was on OCPs with skipped pills. P LMP 12/17/2022, planning ultrasound for dating. Code(s): Z32.01 - Encounter for test, result positive (2) Early stage of : Code(s): Z34.90 - Encounter for supervision of normal , unspecified, unspecified trimester Plan This is a tele visit to discuss patient's ultrasound results that was done for dating of a . The ultrasound was done on 02/17 23 and it gave of gestational age at that visit of 5 weeks and 4 days which corresponds with her LMP and her own use of her flow magno. that would make her 7 weeks and 1 or 2 days today. she is feeling well and she has decided to continue the . She has thrown up a couple of times but says it is not bad and she does not want anything for nausea she sometimes is bloated and is constipated but she has some prune juice in the house because her grandpa uses it and it works for good for him so she will use that. She has already called [facility] mid[facility] as I gave her the list of options at the last visit and she has an appointment at the beginning of March for her intake there. 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 Though she does live in [place]. She does not have any other questions and I reviewed what she should do if in she has an emergency which would be to go to [facility] evaluation unit. She will get her care at [facility]. She already has the vitamins that I sent to the pharmacy for her at the 1st visit. Telehealth Telehealth Location of provider rendering services: practice address Location of patient: other Patient Identification confirmed using: Name, : Yes Telehealth method: voice only Patient verbally consented to treatment: Yes Patient verbally consented to billing insurance company: Yes Patient informed of any privacy concerns related to visit: No Coding Level of Care Code Tele Est Pt Level 3 (67783) Diagnoses Positive urine test Z32.01 Early stage of Z34.90
== END 2023-03-01 12:28 | disposition home or self-care (01) ==
LOC: HO.HWS 11:25
PROVIDERS: PCP Pediatrics; Visit Provider Advanced Practice Midwife
DX: Z34.90 Encounter for supervision of normal pregnancy, unspecified, unspecified trimester (principal)
CPT/HCPCS: 25942; 99213

== ENCOUNTER → 2023-03-01 11:25 | Outpatient (BNVA) | payer OTHER, SELFPAY | PROVIDERS: PCP Pediatrics; Visit Provider Advanced Practice Midwife ==

== ENCOUNTER 2023-04-15 20:45 | Emergency (ER) | payer OTHER, SELFPAY ==
[2023-04-15 21:40] VITALS: BP 135/78; PULSE 104; RESP 18; TEMP 37.2; O2SAT 100; BMI 28.7
[2023-04-15 22:12] LABS: MANUAL DIFF FLAG NO
[2023-04-15 22:16] LABS: Basophils Percent Auto 0.3 % (0-2); Eosinophils Absolute Auto 0.2 X10*3/uL (0.0-0.4); Eosinophils Percent Auto 1.2 % (0-4); Hematocrit 36.3 % (37.0-47.0); Hemoglobin 12.7 g/dl (12.0-16.0); Imm Gran Abs Auto 0.07 X10*3/uL (0.00-0.03); Imm Gran Pct Auto 0.5 % (0.0-0.4); Lymphocytes Absolute Auto 1.4 X10*3/uL (1.2-4.9); Mean Corpuscular Hemoglobin 29.5 pg (27.0-33.0); Mean Corpuscular Volume 84.2 fL (80.0-98.0); Mean Platelet Volume 9.5 fL (9.4-12.3); Monocytes Absolute Auto 0.9 X10*3/uL (0.1-1.2); Monocytes Percent Auto 6.1 % (2-11); Neutrophils Absolute Auto 11.4 x10*3/uL (2.0-8.3); Neutrophils Percent Auto 81.9 % (45-73); Platelet Count 336 X10*3/uL (160-400); Red Blood Count 4.31 X10*6/uL (4.20-5.50); Red Cell Distribution Width 12.7 % (11.0-16.0)
[2023-04-15 22:27] LABS: IDNOW Serial# 08D9AD1C; Strep A Nucleic Acid Negative (Negative)
[2023-04-15 22:35] LABS: Alanine Aminotransferase 36 U/L (0-31); Albumin Level 4.2 g/dL (3.5-5.0); Alkaline Phosphatase 77 U/L (39-117); Anion Gap 14 (12-20); Aspartate Amino Transferase 26 U/L (5-31); Bilirubin Total 0.4 mg/dL (0.0-1.0); Blood Urea Nitrogen 6 mg/dL (9-16); Calcium 10.1 mg/dL (8.4-10.2); Carbon Dioxide 22 mmol/L (22-29); Chloride 103 mmol/L (96-108); Creatinine Clr Calc Pharmacy 140.5; Estimated Glomerular Filt Rate > 60; Glucose Random 77 mg/dL (60-115); Potassium 3.5 mmol/L (3.3-5.1); Sodium 135 mmol/L (135-145); Total Protein 8.2 g/dL (6.5-8.0)
[2023-04-15 22:51] LABS: Influenza A PCR NEGATIVE (Negative); Influenza B PCR NEGATIVE (Negative); Resp Syncy Virus RNA Qual PCR NEGATIVE (Negative); SARS COV2 PCR INHOUSE NEGATIVE (Negative)
--- NOTE | 2023-04-16 00:12 | ED.GENADULT ---
HPI - General Adult General Chief complaint: Upper Respiratory Symptoms Stated complaint: Sore throat, body aches Time Seen by Provider: 04/15/23 23:57 Source: patient Mode of arrival: ambulatory Limitations: no limitations History of Present Illness HPI narrative: patient comes to the emergency room complained of sore throat for 1 week, diffuse body aches. Patient states that for about a week, patient has been having intermittent vomiting , patient is approximately 13 weeks of gestational age. Patient denies shortness of breath. Patient states she already has care, patient has nausea medications at home which are working fairly well for her which were prescribed by her OBGYN. Patient denies vaginal spotting or bleeding or fluid leakage. No abdominal cramping Related Data Previous Rx's Medication Instructions Recorded vitamin with calcium 1 tab PO DAILY #90 tabs 02/14/23 no.72-iron 27 mg-folic acid 1 mg tablet ( Vitamins Plus Low Iron) Allergies Allergy/AdvReac Type Severity Reaction Status Date / Time No Known Allergies Allergy Verified 03/01/23 11:09 [No Known Allergies*] Review of Systems Review of Systems: Constitutional : No Weight loss, No Fever, No Chills, No Night Sweats, diffuse body aches ENT/Mouth : No Hearing loss, No Ear Pain, No Nasal Congestion, No Sinus Pain, No Hoarseness, complaining of sore throat, No Rhinorrhea, No Swallowing Difficulty Eyes: No Eye Pain, No Swelling, No Redness, No Foreign Body, No Discharge, No Vision Changes Cardiovascular : No Chest Pain, No SOB, No Dyspnea on Exertion, No Orthopnea, No Edema, No Palpitations Respiratory : No Cough, No Sputum, No Wheezing, No Smoke Exposure, No Dyspnea Gastrointestinal : No Nausea, No Vomiting, No Diarrhea, No Constipation, No abdominal Pain, No Hematochezia, No Melena Genitourinary : no irregular bleeding, No Dysuria, No Urinary Frequency, No Hematuria, No Urinary Incontinence, No Urgency, No Flank Pain, No Urinary Flow Changes, No Hesitancy Musculoskeletal : No joint pain, No Myalgias, No Joint Swelling Skin : No Skin Lesions, No rash Neuro : No Weakness, No Numbness, No Paresthesias, No Loss of Consciousness, No Dizziness, No Headache Psych : No Anxiety/Panic, No Depression, No SI/HI/AH/VH, No Social Issues, Heme/Lymph: No Bruising, No Bleeding,No Lymphadenopathy Endocrine : No Polyuria, No Polydipsia, No Temperature Intolerance [facility] Social History Social History Smoked in Last 30 Days: No Use of substances other than those prescribed or required for medical reasons: No Advance Directives: No Advance Directives Information Provided: No Patient : Yes Physical Exam ED Vital Signs: Vital Signs - 24 hr 04/15/23 21:40 Temperature 98.9 F Pulse Rate 104 H Respiratory Rate 18 Blood Pressure 135/78 Pulse Oximetry 100 Oxygen Delivery Method Room Air BMI result Body Mass Index 28.7 Const Other: Appearance: Alert. Oriented X3. No acute distress. well-appearing Eyes: Pupils equal, round and reactive to light. ENT: Pharynx normal. moist mucous membranes Neck: Normal inspection. Neck supple. No lymph nodes noted. No crepitus CVS: Normal heart rate and rhythm. Pulses normal. Normal S1 and S2 Respiratory: No respiratory distress. Breath sounds normal. No Wheezing. No rales Abdomen: Soft and nontender. No rigidity. No distention. Skin: Skin warm and dry. Normal skin color. Normal skin turgor. Extremities: No lower extremity edema. No Lacerations. No Rash Neuro: Oriented X 3. No motor deficit. No sensory deficit. Moving all extremities. No slurred speech. CN 2 through 12 grossly intact Psych: calm, cooperative, normal affect Medical Decision Making Medical Decision Making [facility] Narrative: - my interpretation of labs: Negative for influenza, RSV, COVID and strep. White blood cell count 14 secondary to . chemistry within normal limits - I discussed with the patient that she likely has a viral illness. Patient instructed to drink plenty of fluids. If anything changes to return to the emergency room. Differential Diagnosis Differential Diagnoses: The differential diagnosis associated with the presentation includes ( COVID, RSV, influenza, strep, viral URI) Lab Data [facility] Lab Attestation statement: I reviewed the patient's lab results. 04/15/23 22:06 04/15/23 22:06 Labs: Lab Results 04/15/23 Range/Units 22:06 WBC 14.0 H (4.8-10.8) X10*3/uL RBC 4.31 (4.20-5.50) X10*6/uL Hgb 12.7 (12.0-16.0) g/dl Hct 36.3 L (37.0-47.0) % MCV 84.2 (80.0-98.0) fL MCH 29.5 (27.0-33.0) pg MCHC 35.0 (31.0-35.0) g/dl RDW 12.7 (11.0-16.0) % Plt Count 336 (160-400) X10*3/uL MPV 9.5 (9.4-12.3) fL Immature Gran % (Auto) 0.5 H (0.0-0.4) % Neut % (Auto) 81.9 H (45-73) % Lymph % (Auto) 10.0 L (20-40) % [place] % (Auto) 6.1 (2-11) % Eos % (Auto) 1.2 (0-4) % Baso % (Auto) 0.3 (0-2) % Lymph # (Auto) 1.4 (1.2-4.9) X10*3/uL [place] # (Auto) 0.9 (0.1-1.2) X10*3/uL Eos # (Auto) 0.2 (0.0-0.4) X10*3/uL Baso # (Auto) 0.0 (0.0-0.2) X10*3/uL Abs Immat Gran (auto) 0.07 H (0.00-0.03) X10*3/uL Absolute Neuts (auto) 11.4 H (2.0-8.3) x10*3/uL Absolute Nucleated RBC 0.000 (0.0-0.012) X10*3/uL Nucleated RBC % (auto) 0.0 (0.0-0.2) /100WBC Sodium 135 (135-145) mmol/L Potassium 3.5 (3.3-5.1) mmol/L Chloride 103 (96-108) mmol/L Carbon Dioxide 22 (22-29) mmol/L Anion Gap 14 (12-20) BUN 6 L (9-16) mg/dL Creatinine 0.59 (0.5-1.4) mg/dL Estim Creat Clear Calc 140.5 Estimated GFR > 60 Random Glucose 77 (60-115) mg/dL Calcium 10.1 (8.4-10.2) mg/dL Total Bilirubin 0.4 (0.0-1.0) mg/dL AST 26 (5-31) U/L ALT 36 H (0-31) U/L Alkaline Phosphatase 77 (39-117) U/L Total Protein 8.2 H (6.5-8.0) g/dL Albumin 4.2 (3.5-5.0) g/dL Influenza Type A (PCR) NEGATIVE (Negative) Influenza Type B (PCR) NEGATIVE (Negative) RSV RNA Qual (PCR) NEGATIVE (Negative) SARS-CoV-2 RNA (RT-PCR) NEGATIVE (Negative) S. pyogenes GrpA ROSEMARIE Negative (Negative) Discharge Plan Discharge Clinical Impression: Viral URI Patient Disposition: Home, Self-Care Instructions: Viral Syndrome (ED) Additional Instructions: Please follow-up with your primary care physician tomorrow. If you have any worsening or new symptoms, please return to the emergency room or call 911 Prescriptions: No Action Vitamin Plus Low Iron 27 mg iron- 1 mg tablet 1 tab PO DAILY Qty: 90 1RF
[2023-04-16] MEDS: Prochlorperazine Maleate 5 MG TABLET PO (00:30)
[2023-04-16] MEDS: Acetaminophen 325 MG TABLET 650 MG PO (00:30)
[2023-04-16 00:43] LABS: HCG Quantitative 23274 mIU/mL
== END 2023-04-16 00:33 | disposition home or self-care (01) ==
PROVIDERS: Emergency Provider Emergency Medicine
DX: O98.511 Other viral diseases complicating pregnancy, first trimester (principal); B33.8 Other specified viral diseases; J06.9 Acute upper respiratory infection, unspecified; Z3A.13 13 weeks gestation of pregnancy; Z20.822 Contact with and (suspected) exposure to COVID-19; Z20.828 Contact with and (suspected) exposure to other viral communicable diseases
CPT/HCPCS: 0241U; 80053; 84702; 85025; 87651; 99283; 99284

== ENCOUNTER 2023-08-18 05:51 | Emergency (ER) | payer OTHER, SELFPAY ==
--- NOTE | ~2023-08-18 | XR_ITS ---
EXAMINATION: XR TOES, RIGHT CLINICAL INFORMATION: Pain and swelling, fourth toe COMPARISON: None available. TECHNIQUE: 3 views of the right toes were obtained. FINDINGS: There are soft tissue swelling about the distal aspect of the fourth toe. There is also subtle lucency at the base of the distal phalanx abutting the distal interphalangeal joint. The plantar surface cortex appears thinned. No fracture or dislocation is detected. There is no foreign body. XR/XR toe RT min 2V IMPRESSION: Subtle lucency at the base of the distal phalanx of the fourth toe abutting the DIP joint, with thinning of the plantar cortex and associated soft tissue swelling. Inflammatory or crystalline arthropathy, and osteomyelitis are to be considered. Neoplastic processes including glomus or giant cell tumor, chondromyxoid fibroma, etc. are also to be considered. MRI might be of benefit in further assessing the bone lesion and associated soft tissue.
[2023-08-18 06:16] VITALS: BP 107/58; PULSE 80; RESP 19; TEMP 36.8; O2SAT 99; BMI 29.3
--- NOTE | 2023-08-18 06:37 | ED_ITS ---
HPI - Extremity Problem General Chief complaint: Extremity Problem Stated complaint: Toe on R Foot Swollen Time Seen by Provider: 08/18/23 06:36 Source: patient Mode of arrival: ambulatory Limitations: no limitations History of Present Illness HPI Narrative: 22 yo female presenting with right 4th toe pain for months, acutely worse in the last 2 days. Had injury in April but never had imaging. It was never red but it was slightly swollen. She had intermittent pains since then. Two days ago she developed acute worsening of the pain and the toe became red, swollen and warm. She has had pain with ambulation which is new. No new trauma, open wounds. No hx DM. No hx gout. MD Complaint: extremity pain Onset (ago): day(s) Pain Consistency: constant Location: right and toe Severity scale (1-10): 9 Quality: stabbing and aching Radiation: proximal Relieving factors: immobilization and elevation Exacerbating factors: weight bearing and walking Associated symptoms: denies other symptoms Related Data Previous Rx's Medication Instructions Recorded vitamin with calcium 1 tab PO DAILY #90 tabs 02/14/23 no.72-iron 27 mg-folic acid 1 mg tablet ( Vitamins Plus Low Iron) naproxen 500 mg tablet,delayed 500 mg PO BID #14 tabs 08/18/23 release Allergies Allergy/AdvReac Type Severity Reaction Status Date / Time No Known Allergies Allergy Verified 08/18/23 06:16 [No Known Allergies*] Review of Systems Review of Systems: Yes all other systems are reviewed and are negative [facility] Social History Social History Alcohol intake: current Alcohol intake frequency: holidays/special occasions only Smoked in Last 30 Days: No Use of substances other than those prescribed or required for medical reasons: No Advance Directives: No Advance Directives Information Provided: No Patient : No Physical Exam Vital Signs: Vital Signs: Last Vital Signs Temp 98.7 F 08/18/23 07:50 Pulse 79 08/18/23 07:50 Resp 18 08/18/23 07:50 BP 102/54 L 08/18/23 07:50 Pulse Ox 96 08/18/23 07:50 O2 Del Method Room Air 08/18/23 07:50 BMI result Body Mass Index 29.3 Appearance: Alert. Oriented X3. No acute distress. HEENT: normal inspection CVS: Normal heart rate and rhythm. Pulses normal. Respiratory: No respiratory distress. Skin: Skin warm and dry. Normal skin color. Normal skin turgor. No rashes. Extremities: right 4th toe is swollen, erythematous and tender throughout. pain with minimal ROM. no open wounds. NV intact. rest of the foot is normal to inspection. Neuro: Oriented X 3. No motor deficit. No sensory deficit. Medical Decision Making Medical Decision Making [facility] Narrative: 22 yo female presenting with acute on chronic right 4th toe pain s/p remote trauma months ago. Exam is c/w red, swollen, tender and warm toe. she is not diabetic making osteomyelitis and infection much less likely. she has no cormobidities x-ray reviewed and results discussed w/ the patient. she still sees her primary health organisation manager and feels she can make a timely appointment for prompt outpatient follow up. we discussed need for MRI as well as return precautions will start NSAIDS for possible inflammatory/gouty process stable for d/c home with close outpatient follow up Differential Diagnosis Differential Diagnoses: The differential diagnosis associated with the presentation includes gout, pseudogout, cellulitis, osteomyelitis, bony lesion w/ rare ddx as stated on x-ray read Admission/Observation Consideration of admission/observation: Escalation of care including admission/observation considered Independent Interpretation I performed an independent interpretation of an: Plain X-Ray Interpretation: xray reviewed, bony joaquin of distal tuff appreciated Radiology Impression Discussion of test interpretation with radiology: I have reviewed the radiologist's reading. Radiologist Impression: EXAMINATION: XR TOES, RIGHT CLINICAL INFORMATION: Pain and swelling, fourth toe COMPARISON: None available. TECHNIQUE: 3 views of the right toes were obtained. FINDINGS: There are soft tissue swelling about the distal aspect of the fourth toe. There is also subtle lucency at the base of the distal phalanx abutting the distal interphalangeal joint. The plantar surface cortex appears thinned. No fracture or dislocation is detected. There is no foreign body. XR/XR toe RT min 2V IMPRESSION: Subtle lucency at the base of the distal phalanx of the fourth toe abutting the DIP joint, with thinning of the plantar cortex and associated soft tissue swelling. Inflammatory or crystalline arthropathy, and osteomyelitis are to be considered. Neoplastic processes including glomus or giant cell tumor, chondromyxoid fibroma, etc. are also to be considered. MRI might be of benefit in further assessing the bone lesion and associated soft tissue. External Record Review External record reviewed: Outpatient record and Prior outpatient labs Prescription Management I considered prescription management with: Pain Medication and Antibiotic Critical Care Time Critical Care Time Critical Care Time: No Discharge Plan Discharge Clinical Impression: Pain in toe Qualifiers: Laterality: right Qualified Code(s): M79.674 - Pain in right toe(s) Patient Disposition: Home, Self-Care Instructions: Arthralgia (ED) Additional Instructions: Your x-ray today was abnormal. It needs outpatient follow up. Call your doctor today to make an appointment with them. Recommend taking the prescribed anti-inflammatory pain medication as directed. Elevate your foot when possible. If you develop new or worsening symptoms call 911 or come back to the ER for further evaluation. EXAMINATION: XR TOES, RIGHT CLINICAL INFORMATION: Pain and swelling, fourth toe COMPARISON: None available. TECHNIQUE: 3 views of the right toes were obtained. FINDINGS: There are soft tissue swelling about the distal aspect of the fourth toe. There is also subtle lucency at the base of the distal phalanx abutting the distal interphalangeal joint. The plantar surface cortex appears thinned. No fracture or dislocation is detected. There is no foreign body. XR/XR toe RT min 2V IMPRESSION: Subtle lucency at the base of the distal phalanx of the fourth toe abutting the DIP joint, with thinning of the plantar cortex and associated soft tissue swelling. Inflammatory or crystalline arthropathy, and osteomyelitis are to be considered. Neoplastic processes including glomus or giant cell tumor, chondromyxoid fibroma, etc. are also to be considered. MRI might be of benefit in further assessing the bone lesion and associated soft tissue. Prescriptions: New naproxen 500 mg tablet,delayed release (DR/EC) 500 mg PO BID Qty: 14 0RF No Action Vitamin Plus Low Iron 27 mg iron- 1 mg tablet 1 tab PO DAILY Qty: 90 1RF
--- NOTE | 2023-08-18 06:40 | PC.NURSE ---
pt from home reporting hitting right 4th toe in janaury and reports no pain relief since. pt 4th toe noted to be swollen,red and tender touch. pt reports pain has been increased since last night and was unable to sleep. pt reports being unable to put weight onto that foot. cms in tact.
[2023-08-18 07:50] VITALS: BP 102/54; PULSE 79; RESP 18; TEMP 37.1; O2SAT 96
[2023-08-18] MEDS: Ibuprofen 600 MG TABLET PO (08:21)
[2023-08-18 08:25] VITALS: BP 113/80; PULSE 83; RESP 18; TEMP 37.2; O2SAT 97
== END 2023-08-18 08:26 | disposition home or self-care (01) ==
PROVIDERS: Emergency Provider Emergency Medicine
DX: M79.674 Pain in right toe(s) (principal)
CPT/HCPCS: 73660; 99283; 99284

== ENCOUNTER 2023-09-22 23:24 | Emergency (ER) | payer OTHER, SELFPAY ==
[2023-09-22 23:41] VITALS: BP 119/71; PULSE 82; RESP 18; TEMP 37.1; O2SAT 98; BMI 28.3
--- NOTE | 2023-09-23 04:34 | ED.WOUNDLAC ---
HPI - Wound/Laceration General Chief Complaint: Wound/Laceration Stated Complaint: Thumb lac Time Seen by Provider: 09/23/23 04:28 Source: patient Mode of arrival: ambulatory Limitations: no limitations History of Present Illness HPI narrative: Patient comes to the emergency room complaining of a laceration to the left thumb palmar aspect. Patient states that she had a facial blade and accidentally cut her finger. Patient states that she had her tetanus booster less than 1 year ago. Related Data Previous Rx's ?Medication ?Instructions ?Recorded vitamin with calcium 1 tab PO DAILY #90 tabs 02/14/23 no.72-iron 27 mg-folic acid 1 mg tablet ( Vitamins Plus Low Iron) naproxen 500 mg tablet,delayed 500 mg PO BID #14 tabs 08/18/23 release Allergies Allergy/AdvReac Type Severity Reaction Status Date / Time No Known Allergies Allergy Verified 09/22/23 23:42 [No Known Allergies*] Review of Systems Review of Systems: Constitutional : No Weight loss, No Fever, No Chills, No Night Sweats, No Fatigue, No Malaise ENT/Mouth : No Hearing loss, No Ear Pain, No Nasal Congestion, No Sinus Pain, No Hoarseness, No sore throat, No Rhinorrhea, No Swallowing Difficulty Eyes: No Eye Pain, No Swelling, No Redness, No Foreign Body, No Discharge, No Vision Changes Cardiovascular : No Chest Pain, No SOB, No Dyspnea on Exertion, No Orthopnea, No Edema, No Palpitations Respiratory : No Cough, No Sputum, No Wheezing, No Smoke Exposure, No Dyspnea Gastrointestinal : No Nausea, No Vomiting, No Diarrhea, No Constipation, No abdominal Pain, No Hematochezia, No Melena Genitourinary : no irregular bleeding, No Dysuria, No Urinary Frequency, No Hematuria, No Urinary Incontinence, No Urgency, No Flank Pain, No Urinary Flow Changes, No Hesitancy Musculoskeletal : No joint pain, No Myalgias, No Joint Swelling Skin : Complaining of a laceration to the palmar aspect of the left thumb Neuro : No Weakness, No Numbness, No Paresthesias, No Loss of Consciousness, No Dizziness, No Headache Psych : No Anxiety/Panic, No Depression, No SI/HI/AH/VH, No Social Issues, Heme/Lymph: No Bruising, No Bleeding,No Lymphadenopathy Endocrine : No Polyuria, No Polydipsia, No Temperature Intolerance [facility] Social History Social History Alcohol intake: current Alcohol intake frequency: holidays/special occasions only Advance Directives: No Advance Directives Information Provided: Yes Physical Exam Vital Signs: Vital Signs: Last Vital Signs Temp 98.8 F 09/22/23 23:41 Pulse 82 09/22/23 23:41 Resp 18 09/22/23 23:41 BP 119/71 09/22/23 23:41 Pulse Ox 98 09/22/23 23:41 O2 Del Method Room Air 09/22/23 23:41 BMI result Body Mass Index 28.3 Const: Other: Appearance: Alert. Oriented X3. No acute distress. Eyes: Pupils equal, round and reactive to light. ENT: Pharynx normal. Neck: Normal inspection. Neck supple. No lymph nodes noted. No crepitus CVS: Normal heart rate and rhythm. Pulses normal. Normal S1 and S2 Respiratory: No respiratory distress. Breath sounds normal. No Wheezing. No rales Abdomen: Soft and nontender. No rigidity. No distention. Skin: Skin warm and dry. Normal skin color. Normal skin turgor. Extremities: No lower extremity edema. No Lacerations. No Rash, there is a 2 cm laceration to the palmar aspect of the left thumb, bleeding controlled Neuro: Oriented X 3. No motor deficit. No sensory deficit. Moving all extremities. No slurred speech. CN 2 through 12 grossly intact Psych: calm, cooperative, normal affect Course Course Course Narrative: Discussed with the patient that she will need stitches, patient agreeable Medical Decision Making Differential Diagnosis Differential Diagnoses: The differential diagnosis associated with the presentation includes (Laceration, puncture wound) Procedures Laceration Laceration 1: Site: hand (Thumb palmar aspect) Side (If applicable): left Size (cm): 2 Description: linear and flap Depth: simple, single layer Local Anesthetic: lidocaine 1% Amount of anesthesia used (mL): 4 Pre-repair: wound explored Skin layer closed with: nylon Size (cm): 5-0 Number of sutures: 4 Technique: simple, interrupted Discharge Plan Discharge Clinical Impression: Laceration Patient Disposition: Home, Self-Care Instructions: Laceration (ED), Care For Your Stitches (ED) Additional Instructions: Your stitches need to be removed in 7-10 days, Please follow-up with your primary care physician tomorrow. If you have any worsening or new symptoms, please return to the emergency room or call 911 Prescriptions: No Action naproxen 500 mg tablet,delayed release (DR/EC) 500 mg PO BID Qty: 14 0RF Vitamin Plus Low Iron 27 mg iron- 1 mg tablet 1 tab PO DAILY Qty: 90 1RF Print Language: Danish
[2023-09-23 05:42] VITALS: BP 119/71; PULSE 82; RESP 18; TEMP 37.1; O2SAT 98
== END 2023-09-23 05:43 | disposition home or self-care (01) ==
PROVIDERS: Emergency Provider Emergency Medicine
DX: S61.012A Laceration without foreign body of left thumb without damage to nail, initial encounter (principal); W26.8XXA Contact with other sharp object(s), not elsewhere classified, initial encounter; Y93.9 Activity, unspecified; Y92.9 Unspecified place or not applicable; Y99.9 Unspecified external cause status
CPT/HCPCS: 12001; 99284

== ENCOUNTER 2024-10-16 09:28 | Outpatient (AMB) | payer OTHER, SELFPAY ==
--- NOTE | 2024-10-16 09:57 | MHC.OFFWIV ---
Intake Vital Signs 10/16/24 10:01 Height 5 ft 2 in Weight 174 lb 6 oz BMI 31.9 BP 120/74 Blood Pressure Location Rt brachial Position Sitting Pulse 77 Pulse Source Pulse Oximeter Pulse Oximetry (%) 99 Oxygen Delivery Method Room Air Intake Visit Reasons: EP-school physical Intake Note: Patient here for school physical. Patient Tobacco Use Status: Never used Tobacco Allergies No Known Allergies [No Known Allergies*] Allergy (Verified 10/16/24 10:03) Do you need a note to return to daycare/school/sports/work: No HPI EP-school physical HPI Details This is a 24-year-old female patient who presents to the walk-in clinic today for a school physical. She will be attending [employer] in the fall for the [employer] program. 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 Patient denies any medical problems. Denies being on any medications. Denies any surgical history or hospitalizations. Has had wisdom tooth removal, however no other procedures. Denies any complaints at this time, and feels physically/emotionally prepared to begin nursing program. [facility] Social History Alcohol intake: current Alcohol intake frequency: holidays/special occasions only Patient Tobacco Use Status: Never used Tobacco Female Reproductive History Menstrual Age of Menarche: 14 Review of Systems Const All systems reviewed & are unremarkable except as noted in HPI and below Physical Exam Vital Signs: Last Vital Signs Pulse 77 10/16/24 10:01 BP 120/74 10/16/24 10:01 Pulse Ox 99 10/16/24 10:01 Oxygen Delivery Method Room Air 10/16/24 10:01 BMI result Body Mass Index 31.9 Const General: cooperative, healthy appearing, comfortable and no acute distress Nutritional Appearance: average body habitus Orientation/consciousness: patient oriented x3 Limitations: no limitations HEENT Head: Yes normal to inspection Ears: hearing grossly normal bilaterally General nose exam: Normal external nose present Mouth: Normal oral and palatal mucosa present Resp Effort & Inspection: normal respiratory effort Auscultation: clear to auscultation bilaterally Cardio Rate: regular rate Rhythm: regular rhythm Heart sounds: S1 normal heart sound present and S2 normal heart sound present Back/Spine/Pelvis Cervical Spine: normal cervical lordosis and cervical ROM normal Thoracic/Lumbar Spine: thoraco-lumbar ROM normal Skin General skin exam: no rashes or lesions noted Neuro General: patient oriented x3 and gait normal Cognition (Neuro): normal cognition Extrem General: Yes full ROM, Yes capillary refill normal and Yes no clubbing, cyanosis or edema Psych Appearance: grossly normal Mental Status: mental status grossly normal Speech and movement: Normal speech and movement present Assessment & Plan Assessment & Plan (1) School physical exam: Code(s): Z02.0 - Encounter for examination for admission to [facility] Plan: 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 Based on history and physical exam today, I did not identify any contraindications to her beginning class or clinical experiences. I strongly encouraged her to seek out a PCP for further needs should they arise. I provided her with information to call [facility] in [facility]. She requires a T-spot for school, which I have ordered. All questions were answered. Orders: Orders T Spot TB Today Z02.0 - Encounter for examination for admission to [facility] Coding Level of Care Code Est Pt Level 4 (62522) Diagnoses School physical exam Z02.0
[2024-10-16 10:01] VITALS: BP 120/74; PULSE 77; O2SAT 99; BMI 31.9
== END 2024-10-16 10:44 | disposition home or self-care (01) ==
PROVIDERS: Visit Provider Nurse Practitioner Family
DX: Z02.0 Encounter for examination for admission to educational institution (principal)

== ENCOUNTER 2024-10-16 09:28 | Outpatient (REF) | payer OTHER, SELFPAY ==
[2024-10-19 14:49] LABS: TS Negative Control Passed; TS Panel A 0; TS Panel B 0; TS Positive Control Passed; TSpotTB Negative (Negative)
== END 2024-10-16 09:29 | disposition home or self-care (01) ==
LOC: HO.HMGCLDS 09:28
PROVIDERS: Visit Provider Nurse Practitioner Family
DX: Z02.0 Encounter for examination for admission to educational institution (principal)
CPT/HCPCS: 36415; 86481